=== PATIENT | male | born 2000 | race Two or more races ===

== ENCOUNTER 2018-01-10 17:56 | Emergency (ER) | payer OTHER ==
[~2018-01-10] VITALS: Ht 180.3 cm; Wt 54.4 kg
--- NOTE | 2018-01-10 18:38 | ED.ADGEN ---
Adult General Chief Complaint Chief Complaint " I got hurt in [employer]iot training..." " My Rt. Wrist and Forearm..." [facility] HPI Patient is a 17 year old male [employer] who presents with above hx and complaints of Rt. wrist and forearm pain. (See Downtime form for details) Dyspnea neurovascular intact. Patient is right-hand dominant. Pain with flexion , pronation, supination and wrist and forearm. Patient normally healthy. Patient follows at [place]. No other injuries reported. Review of Systems Review of Systems Constitutional: Denies fever or chills [] Eyes: Denies change in visual acuity, redness, or eye pain [] HENT: Denies nasal congestion or sore throat [] Respiratory: Denies cough or shortness of breath [] Cardiovascular: No additional information not addressed in HPI [] GI: Denies abdominal pain, nausea, vomiting, bloody stools or diarrhea [] : Denies dysuria or hematuria [] Musculoskeletal: Denies back pain or joint pain [] Integument: Denies rash or skin lesions [] Neurologic: Denies headache, focal weakness or sensory changes [] Endocrine: Denies polyuria or polydipsia [] All other systems were reviewed and found to be within normal limits, except as documented in this note. Family History Family History Noncontributory Current Medications Current Medications See nursing for home meds Allergies Allergies Allergies Coded Allergies Type Severity Reaction Last Updated Verified No Known Drug Allergies 01/10/18 No Physical Exam Physical Exam Constitutional: Well developed, well nourished, no acute distress, non-toxic appearance. [] HENT: Normocephalic, atraumatic, bilateral external ears normal, oropharynx moist, no oral exudates, nose normal. [] Eyes: PERRLA, EOMI, conjunctiva normal, no discharge. [] Neck: Normal range of motion, no tenderness, supple, no stridor. [] Cardiovascular:Heart rate regular rhythm, no murmur [] Lungs & Thorax: Bilateral breath sounds clear to auscultation [] Abdomen: Bowel sounds normal, soft, no tenderness, no masses, no pulsatile masses. [] Skin: Warm, dry, no erythema, no rash. [] Back: No tenderness, no CVA tenderness. [] Extremities: No tenderness, no cyanosis, no clubbing, ROM intact, no edema. [] Except findings in right wrist as per history of present illness Neurologic: Alert and oriented X 3, normal motor function, normal sensory function, no focal deficits noted. [] Psychologic: Affect normal, judgement normal, mood normal. [] Current Patient Data Vital Signs Vital Signs Date Time Temp Pulse Resp B/P (MAP) Pulse Ox O2 Delivery O2 Flow Rate FiO2 01/10/18 18:52 98.2 48 16 100 Room Air EKG EKG [] Radiology/Procedures Radiology/Procedures My interpretation of forearm or right arm shows no obvious fracture dislocation. [] Course & Med Decision Making Course & Med Decision Making Pertinent Labs and Imaging studies reviewed. (See chart for details) Patient apply ice as needed. Elevation. Rest. Application of Steve wrap-distal circulation intact. Follow-up at [place]. Patient return if any concerns. Patient take ibuprofen 400 mg up to 4 times a day for pain and discomfort patient take ibuprofen with food. [] Final Impression Final Impression 1. Contusion 2. Sprain Strain[] Dragon Disclaimer Dragon Disclaimer This electronic medical record was generated, in whole or in part, using a voice recognition dictation system. MICKEY LUGO MD Jan 10, 2018 18:38
[2018-01-10] MEDS ORDERED: IBUPROFEN 600 MG TABLET. PO ONE (18:40)
[2018-01-10] MEDS ORDERED: IBUP400T18 PO (18:41)
[2018-01-10 18:52] VITALS: BP 95/45
--- NOTE | 2018-01-10 23:58 | RAD ---
Right forearm AP lateral x-rays 2 views HISTORY: Right lateral forearm pain. FINDINGS: No fracture, dislocation, periosteal reaction or lytic or sclerotic bone lesion of the radius and ulna. Soft tissues unremarkable. IMPRESSION: Negative right forearm. Right wrist x-rays 3 views HISTORY: Right wrist pain. FINDINGS: No fracture, dislocation or arthritic change. No radiographic changes of osteonecrosis. The soft tissues are unremarkable. IMPRESSION: Negative right wrist x-rays. Electronically signed by: Lisandro Dudley MD (01/10/2018 11:55 PM) [id number]
--- NOTE | 2018-01-10 23:59 | RAD ---
Right forearm AP lateral x-rays 2 views HISTORY: Right lateral forearm pain. FINDINGS: No fracture, dislocation, periosteal reaction or lytic or sclerotic bone lesion of the radius and ulna. Soft tissues unremarkable. IMPRESSION: Negative right forearm. Right wrist x-rays 3 views HISTORY: Right wrist pain. FINDINGS: No fracture, dislocation or arthritic change. No radiographic changes of osteonecrosis. The soft tissues are unremarkable. IMPRESSION: Negative right wrist x-rays. Electronically signed by: Lisandro Dudley MD (01/10/2018 11:55 PM) [id number]
== END 2018-01-10 18:50 | disposition home or self-care (01) ==
LOC: ER 17:56
DX: S63.501A Unspecified sprain of right wrist, initial encounter (principal); M79.631 Pain in right forearm; X58.XXXA Exposure to other specified factors, initial encounter; Y93.89 Activity, other specified; Y99.8 Other external cause status; Y92.89 Other specified places as the place of occurrence of the external cause
CPT/HCPCS: 73090; 73110; 99284